=== PATIENT | male | born 1965 | race African-American/Black ===

== ENCOUNTER → 2017-01-21 | Outpatient (CLI) | payer OTHER ==
--- NOTE | 2017-01-21 15:25 | RADRPT ---
PROCEDURE: Three-phase bone scan study CLINICAL INDICATION: 51 -year-old patient with right knee replacement, complaining of right knee pain. TECHNIQUE: Following the intravenous injection of 21.4 mCi of Tc-99m MDP, a three-phase bone scan study of the knees bilaterally was obtained. COMPARISON: No prior bone scan studies are available for correlation at the time of this interpret ation. FINDINGS: Blood flow phase of the study demonstrates very mild increase in activity surrounding the right that to the left. Blood pooling images reveal very mild blood pooling activity surrounding the right knee prosthesis a s compared to the left knee. Delayed images of both knees demonstrate evidence of a right knee replacement with minimally increas ed activity surrounding the prosthesis, which is likely related to prior surgery. Mildly increased uptake is seen in the left knee, which is likely related to degenerative disease. Additional delayed spot images of the lower extremities bilaterally do not reveal definite abnormal areas of increased activity. IMPRESSION: 1. Evidence of the right knee replacement with likely postsurgical changes; prosthesis loosening ca nnot be entirely ruled out. 2. Likely degenerative changes of the left knee. 3. No other abnormal areas of increased uptake in the obtained limited views of both lower extremit ies. RPTAT: HH .Rachael Liz MD, MD Date Time Electronically viewed and signed by .Rachael Liz MD, on 01/21/2017 15:24 .L/
== END | disposition home or self-care (01) ==
LOC: NUC 11:00
PROVIDERS: ATTEND Physician Assistant
DX: Z96.651 Presence of right artificial knee joint (principal); M25.561 Pain in right knee
CPT/HCPCS: 78315; A9503